=== PATIENT | female | born 1990 | race Caucasian/White ===

== ENCOUNTER 2023-01-07 03:35 | Emergency (ER) | payer SELFPAY ==
[~2023-01-07] VITALS: Ht 160 cm; Wt 74.8 kg
[2023-01-07 03:40] VITALS: BP 121/76
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
[2023-01-07 04:10] VITALS: BP 121/76
--- NOTE | 2023-01-07 04:36 | NUR ---
PATIENT BIB [facility] POLICE DEPT. PATIENT EXAMINED BY DR. Manuel. PATIENT MEDICALLY CLEARED AND RELEASED IN CUSTODY IN STABLE CONDITION. ORIGINAL PRE-BOOK FORM GIVEN TO OFFICER tyrell jose #[id number].Patient discharged with v/s stable. Written and verbal after care instructions given and explained. Patient verbalized understanding. Police with in custody. All questions addressed prior to discharge. Advised to follow up with PMD.
== END 2023-01-07 03:45 | disposition home or self-care (01) ==
LOC: MED 03:35
DX: Z02.89 Encounter for other administrative examinations (principal); Z88.0 Allergy status to penicillin; V89.2XXA Person injured in unspecified motor-vehicle accident, traffic, initial encounter; Y93.89 Activity, other specified; Y92.89 Other specified places as the place of occurrence of the external cause; Y99.8 Other external cause status
CPT/HCPCS: 99283